=== PATIENT | male | born 1930 | race Caucasian/White ===

== ENCOUNTER 2018-09-16 13:17 | Outpatient (CLI) | payer OTHER | END 2018-09-16 21:38 | disposition home or self-care (01) | LOC: SRD 13:17 | DX: J40 Bronchitis, not specified as acute or chronic (principal); Z85.118 Personal history of other malignant neoplasm of bronchus and lung | CPT/HCPCS: 71046-TC ==

== ENCOUNTER 2018-12-18 10:45 | Outpatient (CLI) | payer OTHER | END 2018-12-18 20:42 | disposition home or self-care (01) | LOC: SRD 10:45 | PROVIDERS: ATTEND Internal Medicine | DX: I51.7 Cardiomegaly (principal); I70.90 Unspecified atherosclerosis; J90 Pleural effusion, not elsewhere classified | CPT/HCPCS: 71046-TC ==